=== PATIENT | male | born 1960 | race African-American/Black ===

== ENCOUNTER 2016-07-03 18:49 | Emergency (ER) | payer MEDICARE, OTHER ==
[~2016-07-03] VITALS: Ht 177.8 cm; Wt 89.0 kg
[2016-07-03 19:38] VITALS: BP 119/67
== END 2016-07-03 20:28 | disposition home or self-care (01) ==
LOC: ER 20:26
DX: H05.011 Cellulitis of right orbit (principal); J45.909 Unspecified asthma, uncomplicated; G89.29 Other chronic pain; F17.200 Nicotine dependence, unspecified, uncomplicated; Z88.6 Allergy status to analgesic agent
CPT/HCPCS: 99283

== ENCOUNTER 2018-06-02 22:13 | Emergency (ER) | payer MEDICARE, OTHER ==
[~2018-06-02] VITALS: Ht 175.3 cm; Wt 95.0 kg
[2018-06-03 02:11] VITALS: BP 115/75
== END 2018-06-03 02:14 | disposition home or self-care (01) ==
LOC: ER 22:13
DX: H57.02 Anisocoria (principal); J45.909 Unspecified asthma, uncomplicated; E78.00 Pure hypercholesterolemia, unspecified; F17.200 Nicotine dependence, unspecified, uncomplicated; Z98.890 Other specified postprocedural states; Z88.6 Allergy status to analgesic agent
CPT/HCPCS: 99284

== ENCOUNTER 2019-11-27 19:43 | Emergency (ER) | payer MEDICARE, OTHER ==
[~2019-11-27] VITALS: Ht 175.3 cm; Wt 95.0 kg
[2019-11-28 00:10] VITALS: BP 121/60
== END 2019-11-28 00:14 | disposition home or self-care (01) ==
LOC: ER 19:43
DX: S60.444A External constriction of right ring finger, initial encounter (principal); Z98.890 Other specified postprocedural states; Z88.6 Allergy status to analgesic agent; W49.04XA Ring or other jewelry causing external constriction, initial encounter; Y93.89 Activity, other specified; Y92.89 Other specified places as the place of occurrence of the external cause; Y99.8 Other external cause status
CPT/HCPCS: 99282; 99283

== ENCOUNTER 2024-02-24 15:24 | Emergency (ER) | payer MEDICARE, MEDICAID ==
[~2024-02-24] VITALS: Ht 177.8 cm; Wt 91.0 kg
[2024-02-24 15:32] VITALS: O2SAT 100
[2024-02-24 15:43] VITALS: BP 146/93; PULSE 85; RESP 18; TEMP 98.2; O2SAT 99
[2024-02-24] MEDS ORDERED: P50 MT (17:03)
[2024-02-24] MEDS ORDERED: GUAI-450 MT (17:03)
== END 2024-02-24 17:23 | disposition home or self-care (01) ==
LOC: ER 15:24
DX: J44.1 Chronic obstructive pulmonary disease with (acute) exacerbation (principal); M19.90 Unspecified osteoarthritis, unspecified site; M41.9 Scoliosis, unspecified; Z88.6 Allergy status to analgesic agent; Z76.0 Encounter for issue of repeat prescription; Z98.890 Other specified postprocedural states
CPT/HCPCS: 99283